=== PATIENT | female | born 1955 | race Two or more races ===

== ENCOUNTER 2018-03-23 10:00 | Outpatient (AMBR) | payer MEDICARE, MEDICAID, SELFPAY ==
--- NOTE | 2018-03-22 09:54 | PTNOTE_ITS ---
PT OP Initial Eval Patient Information Visit Reasons: knee pain Medical Diagnosis: Z47.1 Z96.651 Treatment Dx #1: R knee pain Start of Care: 03/22/18 Date of Onset: 01/25/18 Initial Assessment Subjective Pt is 62 yr old nepali speaking female s/p R TKA about 7 weeks ago. She went to rehab for 9 days and the HH therapy after that. She is ambulating without assistive device limited distances but can grocery shop with the cart as hand support. She is doing HEP and HH chores with moderate pain and she reports LBP that limits bending tolerance. PLOF: prior to knee pain onset she had full use of the R knee for functional mobility. It has progressively worsened over 6-7 yrs. PMH: thyroidism, L knee and L/S OA Pt goal: to do HH chores and walk without pain Objective R knee AROM: Flexion: 90 deg Extension: -5 deg SLR: 65 deg Strength: Quads and hamstrings 4-/5 within available range Slight lateral sway with gait, lacks slight extension on R LE LEFS: 41% Assessment Pt presentation consistent with post op R TKA with decreased ROM, strength and WB tolerance. Pt ambulates with decreased WB on R. Pt has pain at first resistance into knee flexion that limits end-range assessment and PROM. Pt can SLR slowly and has slight extensor lag. Pt has good rehab potential with attainable functional improvement. Pt would benefit from static progressive ROM device for R knee. Short Term and Correctional Case Manager Goals 1. Independent with HEP 2. Improved knee ROM to 0-120 deg 3. Improved quad and hamstring strength to 4+/5 4. Improved ambulatory tolerance to community distances with symmetrical gait pattern Treatment Plan Pt requires skilled therapy in order to increase knee ROM, strength and improve gait and WB tolerance. Rx may include: manual therapy, therex, therapeutic activities, modalities as tolerated: estim, moist heat, ice Will set up 90 day POC in order to complete visits. Frequency and Duration 2x a week for 8 weeks Certification Dates: 03/22/18 to 06/20/18 Office Procedures PT Outpatient G-Codes Date of Service PT Date of Service: 03/22/18 G-Codes Walking & Moving Around Mobility Current Status G-Code: G8978: CK 40-60% Mobility Status G-Code: G8979: CJ 20-40% PT Procedures PT Date of Service: 03/22/18 OP PT Eval Mod Complex 30 minutes: Yes
--- NOTE | 2018-03-23 18:26 | PTNOTE_ITS ---
PT Outpatient Daily Note Date of Service: March 23, 2018 OP Daily Note Visit Reasons: knee pain Outpatient Physical Therapy Treatment Date: 03/23/18 Subjective: I just took my pain pills Objective: See F/S for therex MT: PPM into knee flexion with 15'' holds Gr 4+ x10' total PROM flexion: 98 deg Assessment: Improved knee flexion PROM post MT to 98 deg with overpressure and pain. Plan: Improve ROM Length of Time (minutes) of Treatment: 30 Minutes Office Procedures PT Outpatient G-Codes Date of Service PT Date of Service: 03/22/18 G-Codes Walking & Moving Around Mobility Current Status G-Code: G8978: CK 40-60% Mobility Status G-Code: G8979: CJ 20-40% PT Procedures PT Date of Service: 03/22/18 OP PT Eval Mod Complex 30 minutes: Yes PT Procedures PT Date of Service: 03/23/18 Therapeutic Exercise 15 minutes: Yes Manual Powerhouse Mechanic Apprentice 15 minutes: Yes
== END 2018-03-28 23:59 | disposition home or self-care (01) ==
PROVIDERS: PCP Physician Assistant; Referring Provider Physician Assistant; Visit Provider Orthopaedic Surgery
DX: M25.561 Pain in right knee (principal); Z47.1 Aftercare following joint replacement surgery; Z96.651 Presence of right artificial knee joint; M54.5 Low back pain
CPT/HCPCS: 97110; 97140; 97162; G8978; G8979

== ENCOUNTER 2018-04-22 11:00 | Outpatient (AMBR) | payer MEDICARE, MEDICAID, SELFPAY ==
--- NOTE | 2018-03-31 12:34 | PTNOTE_ITS ---
PT Outpatient Daily Note Date of Service: March 31, 2018 OP Daily Note Visit Reasons: knee pain Outpatient Physical Therapy Treatment Date: 03/31/18 Subjective: Doing HEP, bending the knee more Objective: See F/S for therex MT: PPM into knee flexion and extension Gr 4+ with 15 sec holds x10' to 92 deg flexion Assessment: Knee flexion limited to about 90 deg by myofascial tightness and pain. Pt would benefit from static progressive Rom device for home use. Plan: Improve knee flexion Length of Time (minutes) of Treatment: 30 Minutes Office Procedures PT Procedures PT Date of Service: 03/31/18 Therapeutic Exercise 15 minutes: Yes Manual Supervisor Ship Maintenance Services 15 minutes: Yes
--- NOTE | 2018-04-01 15:18 | PT.ODAYNRPT ---
PT Outpatient Daily Note Date of Service: April 01, 2018 OP Daily Note Visit Reasons: knee pain Outpatient Physical Therapy Treatment Date: 04/01/18 Subjective: Doing HEP, bending the knee more Objective: See F/S for therex MT: PPM into knee flexion and extension Gr 4+ with 15 sec holds x10' to 92 deg flexion Assessment: Knee flexion limited to about 90 deg by myofascial tightness and pain. Pt would benefit from static progressive Rom device for home use. Plan: Improve knee flexion Length of Time (minutes) of Treatment: 30 Minutes Office Procedures PT Procedures PT Date of Service: 04/01/18 Therapeutic Exercise 15 minutes: Yes Manual Industrial Waste Inspector 15 minutes: Yes PT Procedures PT Date of Service: 03/31/18 Therapeutic Exercise 15 minutes: Yes Manual Industrial Waste Inspector 15 minutes: Yes
--- NOTE | 2018-04-05 12:51 | PTNOTE_ITS ---
PT Outpatient Daily Note Date of Service: April 05, 2018 OP Daily Note Visit Reasons: knee pain Outpatient Physical Therapy Treatment Date: 04/05/18 Subjective: Doing HEP, trying to bend the knee more Objective: See F/S for therex MT: PPM into knee flexion Gr 4+ with 15 sec holds x10' to 92 deg flexion Assessment: Knee flexion limited to about 90 deg by myofascial tightness and pain. Pt would benefit from static progressive Rom device for home use. Plan: Improve knee flexion Length of Time (minutes) of Treatment: 30 Minutes Office Procedures PT Procedures PT Date of Service: 04/01/18 Therapeutic Exercise 15 minutes: Yes Manual Business Excellence Manager 15 minutes: Yes PT Procedures PT Date of Service: 03/31/18 Therapeutic Exercise 15 minutes: Yes Manual Business Excellence Manager 15 minutes: Yes PT Procedures PT Date of Service: 04/05/18 Therapeutic Exercise 15 minutes: Yes Manual Business Excellence Manager 15 minutes: Yes
--- NOTE | 2018-04-06 13:44 | PT.ODAYNRPT ---
PT Outpatient Daily Note Date of Service: April 06, 2018 OP Daily Note Visit Reasons: knee pain Outpatient Physical Therapy Treatment Date: 04/06/18 Subjective: Doing HEP, trying to bend the knee more Objective: See F/S for therex MT: PPM into knee flexion Gr 4+ with 15 sec holds x10' to 92 deg flexion Assessment: Slow progress with knee flexion limited to about 90 deg by myofascial tightness and pain. Pt would benefit from static progressive Rom device for home use. Plan: Improve knee flexion Length of Time (minutes) of Treatment: 30 Minutes Office Procedures PT Procedures PT Date of Service: 04/01/18 Therapeutic Exercise 15 minutes: Yes Manual Client Services Representative 15 minutes: Yes PT Procedures PT Date of Service: 04/06/18 Therapeutic Exercise 15 minutes: Yes Manual Client Services Representative 15 minutes: Yes PT Procedures PT Date of Service: 03/31/18 Therapeutic Exercise 15 minutes: Yes Manual Client Services Representative 15 minutes: Yes PT Procedures PT Date of Service: 04/05/18 Therapeutic Exercise 15 minutes: Yes Manual Client Services Representative 15 minutes: Yes
--- NOTE | 2018-04-12 11:20 | PTNOTE_ITS ---
PT OP Progress/Discharge Note Date of Service: April 12, 2018 Progress Note/DC Note Progress Note/Discharge Note: Progress Note Patient Information Visit Reasons: knee pain Medical Diagnosis: R TKA 01/25/18 Service Continue Service or Discharge: Continue Service Status Subjective: Pt reports she is walking better and can straighten the knee better but is not able to bend more than about 90 deg. She is taking ibuprofen and tramadol for pain and the knee isn't hurting now. Objective: R knee ArOM: Flexion: 94 deg Extension: full SLR: 90 deg Strength: Quads: 4+/5 Hamstrings: 4+/5 Gait: almost symmetrical with slight lateral sway to the R, community distances Assessment: Pt has attended the eval and 6 visits and made good progress with therapy goals. She has improved knee strength to 4+/5 quads and hamstrings and met that goal. She has improved knee extension to full but flexion has not improved much since the evaluation and is limited to about 95 deg. She did say that prior to sx, she could only bend the knee to about 90 deg so limitations could be long-standing. Pt would benefit from static progressive ROM device to improve knee flexion at home. Plan: Continue with visits to improve knee A/PROM. Office Procedures PT Outpatient G-Codes Date of Service PT Date of Service: 04/12/18 G-Codes Walking & Moving Around Mobility Current Status G-Code: G8978: CJ 20-40% Mobility Status G-Code: G8979: CJ 20-40% PT Procedures PT Date of Service: 04/01/18 Therapeutic Exercise 15 minutes: Yes Manual Foreign Language Professor 15 minutes: Yes PT Procedures PT Date of Service: 04/06/18 Therapeutic Exercise 15 minutes: Yes Manual Foreign Language Professor 15 minutes: Yes PT Procedures PT Date of Service: 03/31/18 Therapeutic Exercise 15 minutes: Yes Manual Foreign Language Professor 15 minutes: Yes PT Procedures PT Date of Service: 04/05/18 Therapeutic Exercise 15 minutes: Yes Manual Foreign Language Professor 15 minutes: Yes PT Procedures PT Date of Service: 04/12/18 Therapeutic Exercise 30 minutes: Yes Manual Foreign Language Professor 15 minutes: Yes
--- NOTE | 2018-04-14 11:27 | PTNOTE_ITS ---
PT Outpatient Daily Note Date of Service: April 14, 2018 OP Daily Note Visit Reasons: knee pain Outpatient Physical Therapy Treatment Date: 04/14/18 Subjective: Pt reports she is walking better and can straighten the knee better but is not able to bend more than about 90 deg. She is taking ibuprofen and tramadol for pain and the knee isn't hurting now. Objective: See F/S for therex MT: PPM into knee flexion x10' at EOB Assessment: Improved squat tolerance and exercise tolerance in general. Knee flexion PROM limited by myofascial tightness that is probably long-standing. Plan: Continue with visits to improve knee A/PROM. Length of Time (minutes) of Treatment: 30 Minutes Office Procedures PT Outpatient G-Codes Date of Service PT Date of Service: 04/12/18 G-Codes Walking & Moving Around Mobility Current Status G-Code: G8978: CJ 20-40% Mobility Status G-Code: G8979: CJ 20-40% PT Procedures PT Date of Service: 04/01/18 Therapeutic Exercise 15 minutes: Yes Manual Curtain Stretcher Assembler 15 minutes: Yes PT Procedures PT Date of Service: 04/06/18 Therapeutic Exercise 15 minutes: Yes Manual Curtain Stretcher Assembler 15 minutes: Yes PT Procedures PT Date of Service: 04/14/18 Therapeutic Exercise 15 minutes: Yes Manual Curtain Stretcher Assembler 15 minutes: Yes PT Procedures PT Date of Service: 03/31/18 Therapeutic Exercise 15 minutes: Yes Manual Curtain Stretcher Assembler 15 minutes: Yes PT Procedures PT Date of Service: 04/05/18 Therapeutic Exercise 15 minutes: Yes Manual Curtain Stretcher Assembler 15 minutes: Yes PT Procedures PT Date of Service: 04/12/18 Therapeutic Exercise 30 minutes: Yes Manual Curtain Stretcher Assembler 15 minutes: Yes
--- NOTE | 2018-04-19 18:58 | PTNOTE_ITS ---
PT Outpatient Daily Note Date of Service: April 19, 2018 OP Daily Note Visit Reasons: knee pain Outpatient Physical Therapy Treatment Date: 04/19/18 Subjective: Pt reports she is walking better and can straighten the knee better but is not able to bend more than about 90 deg. She is taking ibuprofen and tramadol for pain and the knee isn't hurting now. Objective: See F/S for therex NMR: pelvic post depression, AE patterns, hip flexion patterns to improve hip PD x10' Assessment: Improved R hip posterior depression with gait and more symmetrical pattern, less lateral sway. Knee flexion PROM limited by myofascial tightness that is probably long-standing. Plan: Continue with visits to improve knee A/PROM. Length of Time (minutes) of Treatment: 30 Minutes Office Procedures PT Outpatient G-Codes Date of Service PT Date of Service: 04/12/18 G-Codes Walking & Moving Around Mobility Current Status G-Code: G8978: CJ 20-40% Mobility Status G-Code: G8979: CJ 20-40% PT Procedures PT Date of Service: 04/01/18 Therapeutic Exercise 15 minutes: Yes Manual Fisheries Manager 15 minutes: Yes PT Procedures PT Date of Service: 04/06/18 Therapeutic Exercise 15 minutes: Yes Manual Fisheries Manager 15 minutes: Yes PT Procedures PT Date of Service: 04/14/18 Therapeutic Exercise 15 minutes: Yes Manual Fisheries Manager 15 minutes: Yes PT Procedures PT Date of Service: 03/31/18 Therapeutic Exercise 15 minutes: Yes Manual Fisheries Manager 15 minutes: Yes PT Procedures PT Date of Service: 04/05/18 Therapeutic Exercise 15 minutes: Yes Manual Fisheries Manager 15 minutes: Yes PT Procedures PT Date of Service: 04/12/18 Therapeutic Exercise 30 minutes: Yes Manual Fisheries Manager 15 minutes: Yes PT Procedures PT Date of Service: 04/19/18 Therapeutic Exercise 15 minutes: Yes Neuro Re-Education 15 Minutes: Yes
--- NOTE | 2018-04-22 13:23 | PTNOTE_ITS ---
PT Outpatient Daily Note Date of Service: April 22, 2018 OP Daily Note Visit Reasons: knee pain Outpatient Physical Therapy Treatment Date: 04/22/18 Subjective: pt doing well today with no complaints. Objective: see flow sheet. Assessment: attempted the bike and pt had more discomfort so went back on the sci-fit and completed all the time. pt demonstrates good posture and ROM with squats in the PB. pt completed more reps on the TG per self tolerance. she was able to get on and off the machine with no assistance. added self stretch of the knee flexion as she sit EOB and uses the LLE to stretch the RLE. pt denied increase in pain during and after ther ex. Plan: continue POC per PT. Length of Time (minutes) of Treatment: 30 Minutes Office Procedures PT Outpatient G-Codes Date of Service PT Date of Service: 04/12/18 G-Codes Walking & Moving Around Mobility Current Status G-Code: G8978: CJ 20-40% Mobility Status G-Code: G8979: CJ 20-40% PT Procedures PT Date of Service: 04/01/18 Therapeutic Exercise 15 minutes: Yes Manual Steel Spar Operator 15 minutes: Yes PT Procedures PT Date of Service: 04/06/18 Therapeutic Exercise 15 minutes: Yes Manual Steel Spar Operator 15 minutes: Yes PT Procedures PT Date of Service: 04/14/18 Therapeutic Exercise 15 minutes: Yes Manual Steel Spar Operator 15 minutes: Yes PT Procedures PT Date of Service: 04/22/18 Therapeutic Exercise 30 minutes: Yes PT Procedures PT Date of Service: 03/31/18 Therapeutic Exercise 15 minutes: Yes Manual Steel Spar Operator 15 minutes: Yes PT Procedures PT Date of Service: 04/05/18 Therapeutic Exercise 15 minutes: Yes Manual Steel Spar Operator 15 minutes: Yes PT Procedures PT Date of Service: 04/12/18 Therapeutic Exercise 30 minutes: Yes Manual Steel Spar Operator 15 minutes: Yes PT Procedures PT Date of Service: 04/19/18 Therapeutic Exercise 15 minutes: Yes Neuro Re-Education 15 Minutes: Yes
== END 2018-04-28 23:59 | disposition home or self-care (01) ==
PROVIDERS: PCP Physician Assistant; Referring Provider Physician Assistant; Visit Provider Orthopaedic Surgery
DX: Z47.1 Aftercare following joint replacement surgery (principal); M25.561 Pain in right knee; Z96.651 Presence of right artificial knee joint; I10 Essential (primary) hypertension
CPT/HCPCS: 97110; 97112; 97140; G8978; G8979

== ENCOUNTER 2018-05-05 11:00 | Outpatient (AMBR) | payer MEDICARE, MEDICAID, SELFPAY ==
--- NOTE | 2018-05-03 11:44 | PT.ODAYNRPT ---
PT Outpatient Daily Note Date of Service: May 03, 2018 OP Daily Note Visit Reasons: knee Outpatient Physical Therapy Treatment Date: 05/03/18 Subjective: The R LE is less painful and stronger than the L Objective: See F/S for therex MT: R pelvic Posterior manual depression holds x5 Assessment: Good improvement with stairs and squatting. L knee is limiting exercise tolerance and progression. Plan: Reassess for LV Length of Time (minutes) of Treatment: 30 Minutes Office Procedures PT Procedures PT Date of Service: 05/03/18 Therapeutic Exercise 30 minutes: Yes
--- NOTE | 2018-05-05 14:29 | PT.ODS1RPT ---
PT OP Progress/Discharge Note Date of Service: May 05, 2018 Progress Note/DC Note Progress Note/Discharge Note: Progress Note Patient Information Visit Reasons: knee Service Continue Service or Discharge: Continue Service Certification Date Certification Dates: 06/20/18 to 07/19/18 Extended dates Plan Treatment Plan: Status Subjective: I can walk well but I can't bend the knee . Will schedule knee manipulation per MD. Objective: R knee AROM: Ext: full Flexion: 94 deg SLR: 90 deg Strength: Quads: 4+/5 HS: 4+/5 Gait: slight lateral sway to the R Assessment: Pt has attended 06/09 Rx and made good progress with strength and gait but flexion ROM is limited by myofascial tension. Pt would benefit from continued therapy after manipulation in order to improve knee flexion ROM Plan: Extend POC for 30 days in order to do therapy after manipulation 2-3x a week for 4 weeks. Office Procedures PT Outpatient G-Codes Date of Service PT Date of Service: 05/05/18 G-Codes Walking & Moving Around Mobility Current Status G-Code: G8978: CK 40-60% Mobility Status G-Code: G8979: CJ 20-40% PT Procedures PT Date of Service: 05/03/18 Therapeutic Exercise 30 minutes: Yes PT Procedures PT Date of Service: 05/05/18 Therapeutic Exercise 30 minutes: Yes
== END 2018-05-28 23:59 | disposition home or self-care (01) ==
PROVIDERS: PCP Physician Assistant; Referring Provider Physician Assistant; Visit Provider Physician Assistant
DX: Z47.1 Aftercare following joint replacement surgery (principal); Z96.651 Presence of right artificial knee joint; M25.561 Pain in right knee; M54.5 Low back pain; I10 Essential (primary) hypertension
CPT/HCPCS: 97110; G8978; G8979

== ENCOUNTER 2018-08-26 13:30 | Outpatient (AMBR) | payer MEDICARE, MEDICAID, SELFPAY ==
--- NOTE | 2018-08-24 09:21 | PTNOTE_ITS ---
PT OP Initial Eval Patient Information Visit Reasons: ANGEL LUIS Medical Diagnosis: Z01.818 Treatment Dx #1: Right Knee Mobility Deficits Treatment Dx #2: Right LE Weakness Start of Care: 08/24/18 Date of Onset: 08/23/18 Initial Assessment Subjective Pt is a 62 y/o female s/p right knee ANGEL LUIS due to previous. Currently Pt does not c/o knee pain more soreness. Pt has getting with getting in/out of the car, prolonged standing, prolonged walking, self care activities, chores, bahai activities, and performing recreational activities. Pt was recently seen in physical therapy, however, Dr Keating recommended a knee ANGEL LUIS to gain more ROM. Objective Right Knee AROM: -11 deg to 104 deg Right Knee PROM: -7 deg to 109 deg Right Knee MMTs Quads: 4-/5 Hs: 4-/5 Right Hip MMTs Glute Med: 3+/5 Glute Max: 3+/5 SLS (solid surface): 5 sec with instability Assessment Pt demonstrate right knee mobility and strength deficits s/p right knee ANGEL LUIS leading to decline functional tasks. Pt will benefit from physical therapy to increase mobility, strength, and balance to resume normal ADLs safely. Short Term and Veterinary Parasitologist Goals 1) Increase right knee flexion AROM to 115 deg in 8 wks to be able to perform squatting activities 2) Increase right hip MMTs to 4-/5 in 8 wks to be able to ambulate more than 2 hrs without AD 3) Increase right knee MMTs to 4+/5 in 8 wks to be able to perform chores around the house 4) Increase SLS to 30 sec in 8 wks to be able to perform self care activities safely 5) Indep with HEP Treatment Plan 1) Manual Therapy 2) Therapeutic Activities 3) Therapeutic Exercises 4) Modalities (ice, heat, estim) 5) Balance Training 6) Gait Training Frequency and Duration 2 x wk for 8 wks Certification Dates: 08/24/18 to 11/21/18 Office Procedures PT Procedures PT Date of Service: 08/24/18 OP PT Eval Mod Complex 30 minutes: Yes
--- NOTE | 2018-08-26 14:43 | PT.ODAYNRPT ---
PT Outpatient Daily Note Date of Service: August 26, 2018 OP Daily Note Visit Reasons: ANGEL LUIS Outpatient Physical Therapy Treatment Date: 08/26/18 Subjective: Pt is motivated to improve knee flexion ROM since manipulation. Objective: See F/S for therex MT: PPM into knee flexion with overpressure Grade 4,4+ x15' total PROM into knee flexion: 109 deg AROM: 105 deg on Rx table Assessment: Good improvement with R knee flexion PROM after ANGEL LUIS since the last time she was here in therapy. Plan: Improve knee flexion ROM. Length of Time (minutes) of Treatment: 30 Minutes Office Procedures PT Procedures PT Date of Service: 08/24/18 OP PT Eval Mod Complex 30 minutes: Yes PT Procedures PT Date of Service: 08/26/18 Therapeutic Exercise 15 minutes: Yes Manual Dredge Engineer 15 minutes: Yes
== END 2018-08-26 18:06 | disposition home or self-care (01) ==
PROVIDERS: PCP Physician Assistant; Referring Provider Physician Assistant; Visit Provider Orthopaedic Surgery
DX: Z01.818 Encounter for other preprocedural examination (principal); R53.1 Weakness
CPT/HCPCS: 97110; 97140; 97162

== ENCOUNTER 2018-09-14 08:30 | Outpatient (AMBR) | payer MEDICARE, MEDICAID, SELFPAY ==
--- NOTE | 2018-08-31 19:39 | PT.ODAYNRPT ---
PT Outpatient Daily Note Date of Service: August 31, 2018 OP Daily Note Visit Reasons: [place] Outpatient Physical Therapy Treatment Date: 08/31/18 Subjective: Improved knee flexion at home Objective: SEe F/S for therex MT: PROM into knee flexion 115 deg Assessment: Good improvement with knee flexion PROM to 115 deg today with overpressure. Plan: Continue per POC Length of Time (minutes) of Treatment: 30 Minutes Office Procedures PT Procedures PT Date of Service: 08/31/18 Therapeutic Exercise 15 minutes: Yes Manual Beater And Pulper Feeder 15 minutes: Yes
--- NOTE | 2018-09-02 10:08 | PTNOTE_ITS ---
PT Outpatient Daily Note Date of Service: September 02, 2018 OP Daily Note Visit Reasons: [place] Outpatient Physical Therapy Treatment Date: 09/02/18 Subjective: Improved knee flexion at home Objective: SEe F/S for therex MT: PROM into knee flexion 115 deg x10' Assessment: Good improvement with knee flexion PROM to 115 deg today with overpressure. The non-surgical knee is bothering her and limiting exercise tolerance and she has an appt with surgeon to possibly schedule sx on that knee. Plan: Continue per POC Length of Time (minutes) of Treatment: 30 Minutes Office Procedures PT Procedures PT Date of Service: 08/31/18 Therapeutic Exercise 15 minutes: Yes Manual Manager Domestic 15 minutes: Yes PT Procedures PT Date of Service: 09/02/18 Therapeutic Exercise 15 minutes: Yes Manual Manager Domestic 15 minutes: Yes
--- NOTE | 2018-09-07 19:49 | PT.ODAYNRPT ---
PT Outpatient Daily Note Date of Service: September 07, 2018 OP Daily Note Visit Reasons: [place] Outpatient Physical Therapy Treatment Date: 09/07/18 Subjective: Improved knee flexion at home Objective: SEe F/S for therex MT: PROM into knee flexion 118 deg x10' Assessment: Good improvement with knee flexion PROM to 118 deg today with overpressure. The non-surgical knee is bothering her and limiting exercise tolerance and she has an appt with surgeon to possibly schedule sx on that knee. Plan: Continue per POC Length of Time (minutes) of Treatment: 30 Minutes Office Procedures PT Procedures PT Date of Service: 08/31/18 Therapeutic Exercise 15 minutes: Yes Manual Medical Service Representative 15 minutes: Yes PT Procedures PT Date of Service: 09/02/18 Therapeutic Exercise 15 minutes: Yes Manual Medical Service Representative 15 minutes: Yes PT Procedures PT Date of Service: 09/07/18 Therapeutic Exercise 15 minutes: Yes Manual Medical Service Representative 15 minutes: Yes
--- NOTE | 2018-09-09 14:17 | PT.ODAYNRPT ---
PT Outpatient Daily Note Date of Service: September 09, 2018 OP Daily Note Visit Reasons: [place] Outpatient Physical Therapy Treatment Date: 09/09/18 Subjective: Improved knee flexion since manipulation. She is probably going to schedule the L TKA sx soon since it is hurting. Objective: SEe F/S for therex MT: PROM into knee flexion 120 deg x10' Assessment: Good improvement with knee flexion PROM to 120 deg today with overpressure. The non-surgical knee is bothering her and limiting exercise tolerance and she has an appt with surgeon to possibly schedule sx on that knee. Good progress with therapy goals. Plan: Continue per POC Length of Time (minutes) of Treatment: 30 Minutes Office Procedures PT Procedures PT Date of Service: 08/31/18 Therapeutic Exercise 15 minutes: Yes Manual Director Of Advertising Sales 15 minutes: Yes PT Procedures PT Date of Service: 09/02/18 Therapeutic Exercise 15 minutes: Yes Manual Director Of Advertising Sales 15 minutes: Yes PT Procedures PT Date of Service: 09/07/18 Therapeutic Exercise 15 minutes: Yes Manual Director Of Advertising Sales 15 minutes: Yes PT Procedures PT Date of Service: 09/09/18 Therapeutic Exercise 15 minutes: Yes Manual Director Of Advertising Sales 15 minutes: Yes
--- NOTE | 2018-09-14 09:53 | PTNOTE_ITS ---
PT OP Progress/Discharge Note Date of Service: September 14, 2018 Progress Note/DC Note Progress Note/Discharge Note: DC Note Patient Information Visit Reasons: vernon Medical Diagnosis: R TKA 01/25/18 Service Continue Service or Discharge: Discharge Discharge Date: 09/14/18 Status Subjective: Improved knee flexion since manipulation. She is probably going to schedule the L TKA sx soon since it is hurting. Objective: SEe F/S for therex MT: PROM into knee flexion 120 deg x10' R knee AROM: 112 deg in supine Quad strength: 4+/5 HS strength: 4+/5 Assessment: Good improvement with knee flexion PROM to 120 deg today with overpressure. The non-surgical knee is bothering her and limiting exercise tolerance and she has an appt with surgeon to possibly schedule sx on that knee. Pt has met ROM goals of R knee flexion past 115 deg and strength goals to at least 4+/5. She is able to stand on R LE for 30 seconds. Plan: D/C with HEP. Office Procedures PT Procedures PT Date of Service: 08/31/18 Therapeutic Exercise 15 minutes: Yes Manual Analytics Specialist 15 minutes: Yes PT Procedures PT Date of Service: 09/02/18 Therapeutic Exercise 15 minutes: Yes Manual Analytics Specialist 15 minutes: Yes PT Procedures PT Date of Service: 09/07/18 Therapeutic Exercise 15 minutes: Yes Manual Analytics Specialist 15 minutes: Yes PT Procedures PT Date of Service: 09/09/18 Therapeutic Exercise 15 minutes: Yes Manual Analytics Specialist 15 minutes: Yes PT Procedures PT Date of Service: 09/14/18 Therapeutic Exercise 15 minutes: Yes Manual Analytics Specialist 15 minutes: Yes
== END 2018-09-26 23:59 | disposition home or self-care (01) ==
PROVIDERS: PCP Physician Assistant; Referring Provider Physician Assistant; Visit Provider Physician Assistant
DX: Z01.818 Encounter for other preprocedural examination (principal); R53.1 Weakness; R26.2 Difficulty in walking, not elsewhere classified
CPT/HCPCS: 97110; 97140

== ENCOUNTER 2019-01-17 09:30 | Outpatient (AMBR) | payer MEDICARE, MEDICAID, SELFPAY ==
--- NOTE | 2018-12-27 11:09 | PT.OIERPT ---
PT OP Initial Eval Patient Information Visit Reasons: post op left knee arthroplasty Medical Diagnosis: Z47.1 Z96.652 Treatment Dx #1: L knee pain Treatment Dx #2: s/p L TKA Start of Care: 12/27/18 Date of Onset: 11/15/18 Initial Assessment Subjective Pt is 63 yr old sammarinese speaking female s/p L TKA about 6 weeks ago. She had HH therapy for 6 visits and she reports her knee is bending better now. She took 2 tylenols today and the knee doesn't hurt at rest. When she walks it hurts 6/10 and she can walk HH and limited community distances. She is independent with ADL's. PLOF: prior to onset of knee pain she was independent with ADL's and functional mobility. PMH: OA, thyroidism Pt goal: to bend the knee and walk without pain Objective L knee AROM: Flexion: 92 deg Extension: -3 deg SLR: 90 deg Strength: Quads and hamstrings 4-/5 within available range Antalgic gait pattern with decreased WB tolerance on L LE Incision: clean and dry, no signs of infection Assessment Pt presentation consistent with post op L TKA with decreased ROM, strength and WB tolerance. Pt ambulates with decreased WB on L. Pt has pain at first resistance into knee flexion that limits end-range assessment and PROM. Pt can SLR well and has slight extensor lag. Pt has good rehab potential with attainable functional improvement. Short Term and Long-Term Goals 1. Independent with HEP 2. Improved knee ROM to 0-120 deg 3. Improved quad and hamstring strength to 4+/5 4. Improved ambulatory tolerance to community distances with symmetrical gait pattern. Treatment Plan Pt requires skilled therapy in order to increase knee ROM, strength and improve gait and WB tolerance. Rx may include: manual therapy, therex, therapeutic activities, modalities as tolerated: estim, moist heat, ice Will set up 90 day POC in order to complete visits. Frequency and Duration 2x a week for 8 weeks Certification Dates: 12/27/18 to 03/27/19 Office Procedures PT Procedures PT Date of Service: 12/27/18 OP PT Eval Mod Complex 30 minutes: Yes
--- NOTE | 2018-12-28 18:18 | PTNOTE_ITS ---
PT Outpatient Daily Note Date of Service: December 28, 2018 OP Daily Note Visit Reasons: post op left knee arthroplasty Outpatient Physical Therapy Treatment Date: 12/28/18 Subjective: Same as time of evaluation Objective: SEe F/S for therex MT: PPM into knee flexion Gr4 to 96 deg, STM with Graston x15' total Assessment: Good improvement with knee flexion PROM to 96 deg today with discomfort that limits end-range. Pt has gastroc tightness that may be limiting knee extension. Plan: Improve knee ROM Length of Time (minutes) of Treatment: 30 Minutes Office Procedures PT Procedures PT Date of Service: 12/27/18 OP PT Eval Mod Complex 30 minutes: Yes PT Procedures PT Date of Service: 12/28/18 Therapeutic Exercise 15 minutes: Yes Manual Cold Storage Supervisor 15 minutes: Yes
--- NOTE | 2018-12-31 13:51 | PT.ODAYNRPT ---
PT Outpatient Daily Note Date of Service: December 31, 2018 OP Daily Note Visit Reasons: post op left knee arthroplasty Outpatient Physical Therapy Treatment Date: 12/31/18 Subjective: pt states her knee is doing better this time around but still has pain. Objective: see flow sheet. Assessment: pt is pleasant and cooperative during treatment. increased the pressure during her PROM of knee flexion in which she did not c/o pain. advised pt to purse lip breathe to be able to tolerate the stretches. pt was talking during her stretches indicating good tolerance. pt was able to get on and off the bed on her own. pt ambulates with antalgic gait pattern. Plan: continue POC per PT. Length of Time (minutes) of Treatment: 30 Minutes Office Procedures PT Procedures PT Date of Service: 12/27/18 OP PT Eval Mod Complex 30 minutes: Yes PT Procedures PT Date of Service: 12/28/18 Therapeutic Exercise 15 minutes: Yes Manual Automatic Grinding Machine Operator 15 minutes: Yes PT Procedures PT Date of Service: 12/31/18 Therapeutic Exercise 15 minutes: Yes Manual Automatic Grinding Machine Operator 15 minutes: Yes
--- NOTE | 2019-01-03 17:46 | PT.ODAYNRPT ---
PT Outpatient Daily Note Date of Service: January 03, 2019 OP Daily Note Visit Reasons: post op left knee arthroplasty Outpatient Physical Therapy Treatment Date: 01/03/19 Subjective: The knee feels tight and she is icing at home to reduce swelling Objective: SEe F/S for therex MT: PPM into knee flexion Gr4 to 95 deg, STM with Graston x10' total Assessment: Knee flexion PROM to 95 deg today with discomfort that limits end-range. Slow progress with knee flexion ROM so far due to myofascial tightness. Pt has gastroc tightness that may be limiting knee extension. Plan: Improve knee ROM Length of Time (minutes) of Treatment: 30 Minutes Office Procedures PT Procedures PT Date of Service: 12/27/18 OP PT Eval Mod Complex 30 minutes: Yes PT Procedures PT Date of Service: 01/03/19 Therapeutic Exercise 15 minutes: Yes Manual Forestry Professor 15 minutes: Yes PT Procedures PT Date of Service: 12/28/18 Therapeutic Exercise 15 minutes: Yes Manual Forestry Professor 15 minutes: Yes PT Procedures PT Date of Service: 12/31/18 Therapeutic Exercise 15 minutes: Yes Manual Forestry Professor 15 minutes: Yes
--- NOTE | 2019-01-05 19:04 | PT.ODAYNRPT ---
PT Outpatient Daily Note Date of Service: January 05, 2019 OP Daily Note Visit Reasons: post op left knee arthroplasty Outpatient Physical Therapy Treatment Date: 01/05/19 Subjective: The knee feels tight and she is icing at home to reduce swelling Objective: SEe F/S for therex MT: PPM into knee flexion Gr4 to 95 deg, STM with Graston x10' total Assessment: Knee flexion PROM to 95 deg today with discomfort that limits end-range. Slow progress with knee flexion ROM so far due to myofascial tightness. Pt has gastroc tightness that may be limiting knee extension. Plan: Improve knee ROM Length of Time (minutes) of Treatment: 30 Minutes Office Procedures PT Procedures PT Date of Service: 12/27/18 OP PT Eval Mod Complex 30 minutes: Yes PT Procedures PT Date of Service: 01/03/19 Therapeutic Exercise 15 minutes: Yes Manual Biodiesel Plant Manager 15 minutes: Yes PT Procedures PT Date of Service: 12/28/18 Therapeutic Exercise 15 minutes: Yes Manual Biodiesel Plant Manager 15 minutes: Yes PT Procedures PT Date of Service: 12/31/18 Therapeutic Exercise 15 minutes: Yes Manual Biodiesel Plant Manager 15 minutes: Yes PT Procedures PT Date of Service: 01/05/19 Therapeutic Exercise 30 minutes: Yes
--- NOTE | 2019-01-10 10:21 | PTNOTE_ITS ---
PT Outpatient Daily Note Date of Service: January 10, 2019 OP Daily Note Visit Reasons: post op left knee arthroplasty Outpatient Physical Therapy Treatment Date: 01/10/19 Subjective: The knee feels painful in the morning and loosens up with exercise Objective: See F/S for therex MT: PPM into knee flexion Gr4, STM with Graston x10' total Assessment: Improvement with knee flexion PROM to with discomfort that limits end-range. Slow progress with knee flexion ROM so far due to myofascial tightness. Pt has gastroc tightness that may be limiting knee extension. Plan: Improve knee ROM Length of Time (minutes) of Treatment: 30 Minutes Office Procedures PT Procedures PT Date of Service: 12/27/18 OP PT Eval Mod Complex 30 minutes: Yes PT Procedures PT Date of Service: 01/03/19 Therapeutic Exercise 15 minutes: Yes Manual Dental Equipment Repairer 15 minutes: Yes PT Procedures PT Date of Service: 12/28/18 Therapeutic Exercise 15 minutes: Yes Manual Dental Equipment Repairer 15 minutes: Yes PT Procedures PT Date of Service: 12/31/18 Therapeutic Exercise 15 minutes: Yes Manual Dental Equipment Repairer 15 minutes: Yes PT Procedures PT Date of Service: 01/05/19 Therapeutic Exercise 30 minutes: Yes PT Procedures PT Date of Service: 01/10/19 Therapeutic Exercise 15 minutes: Yes Manual Dental Equipment Repairer 15 minutes: Yes
--- NOTE | 2019-01-12 11:22 | PTNOTE_ITS ---
PT OP Progress/Discharge Note Date of Service: January 12, 2019 Progress Note/DC Note Progress Note/Discharge Note: Progress Note Patient Information Visit Reasons: post op left knee arthroplasty Medical Diagnosis: L Total Knee Arthroplasty Treatment Dx #1: L knee pain Treatment Dx #2: s/p L TKA Service Continue Service or Discharge: Continue Service ( ) Certification Date Certification Dates: 12/27/18 to 03/27/19 Status Subjective: The knee feels painful in the morning and loosens up with exercise Objective: L knee AROM: flexion: 90 deg PROM: 95 deg Strength: Quads: 4-/5 HS: 4-/5 Gait: symmetrical with improving heel strike MT: PPM into knee flexion Gr4, STM with Graston x10' total Assessment: Pt has attended the eval and 6 Rx sessions and made improvement with knee flexion PROM to about 95 deg but discomfort limits end-range. Slow progress with knee flexion ROM so far due to myofascial tightness. Knee extension has improved during gait. Plan: Improve knee ROM and strength Office Procedures PT Procedures PT Date of Service: 12/27/18 OP PT Eval Mod Complex 30 minutes: Yes PT Procedures PT Date of Service: 01/03/19 Therapeutic Exercise 15 minutes: Yes Manual Stitchdown Thread Laster 15 minutes: Yes PT Procedures PT Date of Service: 12/28/18 Therapeutic Exercise 15 minutes: Yes Manual Stitchdown Thread Laster 15 minutes: Yes PT Procedures PT Date of Service: 12/31/18 Therapeutic Exercise 15 minutes: Yes Manual Stitchdown Thread Laster 15 minutes: Yes PT Procedures PT Date of Service: 01/05/19 Therapeutic Exercise 30 minutes: Yes PT Procedures PT Date of Service: 01/10/19 Therapeutic Exercise 15 minutes: Yes Manual Stitchdown Thread Laster 15 minutes: Yes PT Procedures PT Date of Service: 01/12/19 Therapeutic Exercise 15 minutes: Yes Manual Stitchdown Thread Laster 15 minutes: Yes
--- NOTE | 2019-01-17 15:20 | PTNOTE_ITS ---
PT OP Progress/Discharge Note Date of Service: January 17, 2019 Progress Note/DC Note Progress Note/Discharge Note: DC Note Patient Information Visit Reasons: post op left knee arthroplasty Medical Diagnosis: L Total Knee Arthroplasty Treatment Dx #1: L knee pain Treatment Dx #2: s/p L TKA Service Continue Service or Discharge: Discharge ( ) Discharge Date: 01/17/19 Certification Date Certification Dates: 12/27/18 to 03/27/19 Status Subjective: The knee feels painful in the morning and loosens up with exercise Objective: L knee AROM: flexion: 90 deg PROM: 95 deg Strength: Quads: 4/5 HS: 4/5 Gait: symmetrical with improving heel strike MT: PPM into knee flexion Gr4 Assessment: Pt has attended the eval and 7 Rx sessions and made improvement with knee flexion PROM to about 98 deg but discomfort limits end-range. Slow progress with knee flexion ROM so far due to myofascial tightness/adhesions. Knee extension has improved during gait. She has met the Medicare annual payment cap with a total of 21 visits so she will be D/C'd. Please contact me with any questions. Plan: D/C with HEP Goals Achieved: 1. Independent with HEP 4. Improved ambulatory tolerance to community distances with symmetrical gait pattern. Office Procedures PT Procedures PT Date of Service: 12/27/18 OP PT Eval Mod Complex 30 minutes: Yes PT Procedures PT Date of Service: 01/03/19 Therapeutic Exercise 15 minutes: Yes Manual Gas Distribution And Emergency Clerk 15 minutes: Yes PT Procedures PT Date of Service: 01/17/19 Therapeutic Exercise 15 minutes: Yes Manual Gas Distribution And Emergency Clerk 15 minutes: Yes PT Procedures PT Date of Service: 12/28/18 Therapeutic Exercise 15 minutes: Yes Manual Gas Distribution And Emergency Clerk 15 minutes: Yes PT Procedures PT Date of Service: 12/31/18 Therapeutic Exercise 15 minutes: Yes Manual Gas Distribution And Emergency Clerk 15 minutes: Yes PT Procedures PT Date of Service: 01/05/19 Therapeutic Exercise 30 minutes: Yes PT Procedures PT Date of Service: 01/10/19 Therapeutic Exercise 15 minutes: Yes Manual Gas Distribution And Emergency Clerk 15 minutes: Yes PT Procedures PT Date of Service: 01/12/19 Therapeutic Exercise 15 minutes: Yes Manual Gas Distribution And Emergency Clerk 15 minutes: Yes
== END 2019-01-26 23:59 | disposition home or self-care (01) ==
PROVIDERS: PCP Physician Assistant; Referring Provider Physician Assistant; Visit Provider Orthopaedic Surgery
DX: M25.562 Pain in left knee (principal)
CPT/HCPCS: 97110; 97140; 97162

== ENCOUNTER → 2024-12-26 | Outpatient (CLI) | payer MEDICARE, SELFPAY ==
--- NOTE | 2024-12-26 12:40 | XR_ITS ---
Examination: Bone densitometry Date and time of exam:December 26, 2024 1237 hours INDICATIONS: Menopause age 51 Technique: Lumbar spine and hip total bone mineralization values of an calculated. Peak reference and age match control results have been displayed. Findings: Lumbar spine total bone mineralization is1.065 gm/cm2. This is 0.2 standard deviations above peak reference. This is 2.1 standard deviations above age-matched controls. Hip total bone mineralization is 0.880 gm/cm2 This is 0.6 standard deviations below peak reference. This is 0.7 standard deviations above age-matched controls Impression: There is normal mineralization based on lumbar spine measurements. There is osteopenia based on hip measurements
== END | disposition home or self-care (01) ==
LOC: CDIM 12-29 07:31
PROVIDERS: Referring Provider Physician Assistant; Visit Provider Physician Assistant
DX: M85.88 Other specified disorders of bone density and structure, other site (principal)
CPT/HCPCS: 77080

== ENCOUNTER → 2025-05-15 | Outpatient (CLI) | payer MEDICARE, SELFPAY ==
--- NOTE | 2025-05-15 07:30 | XR_ITS ---
Examination: Breast ultrasound, unilateral, right Date and time of exam: May 15, 2025, 0744 hours INDICATIONS: Right breast tenderness a few months, outside mammogram 03/06/2025 right axillary lymph node needs additional imaging evaluation Technique: Real-time miller scale ultrasonographic imaging performed right breast including all 4 quadrants as well as nipple retroareolar and axillary region. Findings: No cystic or solid mass Multiple right axillary lymph nodes, without architectural distortion IMPRESSION: BI-RADS Category 2: Benign findings
--- NOTE | 2025-05-15 08:00 | XR_ITS ---
Examination: Diagnostic digital mammography, unilateral, right Computer aided detection 3-D breast Tomosynthesis, unilateral Date and time of exam: May 15, 2025, 0757 hours INDICATIONS: Outside mammogram 03/06/2025 lymph node in the right axilla requires additional imaging evaluation Technique: Nonmagnified MLO, CC views of the right breast have been obtained, reconstructed from 3-D Tomosynthesis images. R2 computer aided detection program utilized for evaluation of suspicious masses and/or abnormal calcifications. 3-D Tomosynthesis images obtained. Findings: Scattered areas of fibroglandular density. Asymmetric enlarged right axillary lymph node compared to the left side with lobular margins Impression: BI-RADS category 0: Incomplete: Need additional imaging evaluation This patient should return for repeat right axillary lymphadenopathy with a radiologist in attendance
== END | disposition home or self-care (01) ==
PROVIDERS: PCP Physician Assistant; Referring Provider Physician Assistant; Visit Provider Physician Assistant
DX: R59.0 Localized enlarged lymph nodes (principal); R92.8 Other abnormal and inconclusive findings on diagnostic imaging of breast
CPT/HCPCS: 76641; 77061; 77065; G0279

== ENCOUNTER → 2025-06-13 | Outpatient (CLI) | payer MEDICARE, SELFPAY ==
--- NOTE | 2025-06-13 12:30 | XR_ITS ---
Examination: Breast ultrasound, unilateral, right Date and time of exam: June 13, 2025, 12:30 p.m. INDICATIONS: Asymmetric enlarged right axillary lymph node with lobular margins on mammogram May 15, 2025 Technique: Real-time miller scale ultrasonographic imaging performed right breast including all 4 quadrants as well as nipple retroareolar and axillary region. Findings: 16 x 8 x 15 mm probably benign lymph node right axilla IMPRESSION: BI-RADS Category 3: Probably benign findings Recommend 1 additional 6-month right breast sonogram follow-up to document stability of axillary lymph node described above
== END | disposition home or self-care (01) ==
PROVIDERS: PCP Family Medicine; Referring Provider Physician Assistant; Visit Provider Physician Assistant
DX: R59.0 Localized enlarged lymph nodes (principal)
CPT/HCPCS: 76641